=== PATIENT | male | born 1985 | race Two or more races ===

== ENCOUNTER 2020-06-11 19:38 | Emergency (ER) | payer MEDICAID ==
[~2020-06-11] VITALS: Ht 175.3 cm; Wt 90.7 kg
--- NOTE | 2020-06-11 19:45 | NUR ---
PT BIBSELF C/O OF A BUMP NEAR HIS GROIN AND PAINFUL URINATION [id number]. PT AAOX4 BREATHING EVENLY AND UNLABORED. PT DENIES URGENCY. SKIN IS WARM, DRY, AND INTACT. PT ATTACHED TO MONITOR AND POX. URINE OBTAINED AND SENT TO LAB. AT BEDSIDE FOR EVAL. PT GIVEN BLANKET AND CALL LIGHT WITHIN REACH.
--- NOTE | 2020-06-11 20:00 | NUR ---
US AT BEDSIDE
[2020-06-11 20:04] LABS: BILIRUBIN,URINE Negative (NEGATIVE); COLOR,URINE YELLOW (YELLOW); LEUKOCYTE ESTERASE ,URINE Moderate (NEGATIVE); NITRITE, URINE Negative (NEGATIVE); PROTEIN,URINE Negative (NEGATIVE); UGLUCOSE Negative (NEGATIVE); UROBILINOGEN,URINE 0.2 EU/dL (0.2)
[2020-06-11] MEDS ORDERED: HYDR453.3 TP (20:08)
[2020-06-11] MEDS ORDERED: CLOT15CR27 TP (20:08)
[2020-06-11 20:11] LABS: BACTERIA,URINE Few /HPF (None Seen); SQUAMOUS EPITHELIAL CELL,UR Few /HPF (None Seen)
[2020-06-11] MEDS ORDERED: CIPR500T5 PO (21:01)
--- NOTE | 2020-06-11 21:26 | NUR ---
Patient discharged to home in stable condition. Written and verbal after care instructions given. Patient verbalizes understanding of instruction. Pt ambulatory with a steady gait
[2020-06-11 21:44] VITALS: BP 149/82
== END 2020-06-11 21:26 | disposition home or self-care (01) ==
LOC: ER 19:44
DX: N47.6 Balanoposthitis (principal)
CPT/HCPCS: 76870-TC; 81001; 87086-TC

== ENCOUNTER 2020-07-11 13:05 | Emergency (ER) | payer MEDICAID ==
[~2020-07-11] VITALS: Ht 175.3 cm; Wt 90.7 kg
[~2020-07-11 13:05] MED LIST: CIPR500T5 PO; CLOT15CR27 TP; HYDR453.3 TP
[2020-07-11 13:20] VITALS: BP 120/74
--- NOTE | 2020-07-11 13:20 | NUR ---
THE PATIENT BIBS FOR C/O LT INDEX FINGER LAC GOT INFECTED. THE PATIENT RATES LEFT INDEX FINGER PAIN 10/10. WILL CONTINUE TO MONITOR.
--- NOTE | 2020-07-11 13:40 | NUR ---
PRINTED [employer] AT BEDSIDE FOR XRAY.
[2020-07-11] MEDS ORDERED: LIDOCAINE /MPF 1% VIAL 5 ML VIAL ONE (14:24)
[2020-07-11] MEDS ORDERED: CEPHALEXIN MONOHYDRATE 500 MG CAPSULE PO ONE ×2 (15:00→15:03)
[2020-07-11] MEDS ORDERED: SULFAMETH/TRIMETH 800/160 MG 1 UDTAB TABLET PO ONE (15:00)
[2020-07-11] MEDS ORDERED: SULFAMETH/TRIMETH 800/160 MG 1 UDTAB TABLET ONE (15:03)
[2020-07-11] MEDS ORDERED: SULF1TAB48 PO (15:05)
[2020-07-11] MEDS ORDERED: CEPH500C2 PO (15:05)
--- NOTE | 2020-07-11 15:20 | NUR ---
Patient discharged to home in stable condition. Written and verbal after care instructions given. Patient verbalizes understanding of instruction.
== END 2020-07-11 15:21 | disposition home or self-care (01) ==
LOC: ER 13:13
DX: L02.512 Cutaneous abscess of left hand (principal); Z79.899 Other long term (current) drug therapy
CPT/HCPCS: 26010; 73140; 99283; J3490

== ENCOUNTER 2021-09-23 14:48 | Emergency (ER) | payer SELFPAY ==
[~2021-09-23] VITALS: Ht 167.6 cm; Wt 90.7 kg
[~2021-09-23 14:48] MED LIST changes: +CEPH500C2 PO; +SULF1TAB48 PO
[2021-09-23 15:07] VITALS: BP 138/74
[2021-09-23] MEDS ORDERED: POLY10DR EACHEYE (15:29)
== END 2021-09-23 15:42 | disposition home or self-care (01) ==
LOC: ER 14:50
DX: H10.9 Unspecified conjunctivitis (principal); Z79.899 Other long term (current) drug therapy

== ENCOUNTER 2024-11-10 13:35 | Emergency (ER) | payer OTHER ==
[~2024-11-10] VITALS: Ht 165.1 cm; Wt 114.8 kg
[~2024-11-10 13:35] MED LIST changes: +POLY10DR EACHEYE
[2024-11-10] MEDS ORDERED: FLUORESCEIN SODIUM OPHTH 1 EA STRIP ONE (14:23)
[2024-11-10] MEDS ORDERED: TOBR5DRO2 LEFTEYE (14:37)
[2024-11-10] MEDS: FLUORESCEIN SODIUM OPHTH 1 EA STRIP OP ONE (14:41)
[2024-11-10 14:46] VITALS: BP 125/76; TEMP 98.6; O2SAT 100
== END 2024-11-10 14:47 | disposition home or self-care (01) ==
LOC: ER 13:41
DX: S05.02XA Injury of conjunctiva and corneal abrasion without foreign body, left eye, initial encounter (principal); Z79.899 Other long term (current) drug therapy; X58.XXXA Exposure to other specified factors, initial encounter; Y93.89 Activity, other specified; Y92.89 Other specified places as the place of occurrence of the external cause; Y99.8 Other external cause status